=== PATIENT | female | born 1985 | race Caucasian/White ===

== ENCOUNTER 2023-08-01 07:25 | Outpatient (OUT) | payer BC, SELFPAY ==
--- NOTE | 2023-08-02 | PCN_ITS ---
CARDIAC STRESS TEST Requesting Physician:? Vijay Lopez NP Procedure Date:? 08/02/2023 PERFORMING PROVIDER:? Ana Luisa Dia M.D. STRESS TEST TYPE:? Treadmill Resting EKG:? Abnormal.? Sinus rhythm with short GA, pre-excitation noted consistent with WPW. Protocol:? Ramo Resting heart rate:? 64 Peak heart rate:? 171 Peak maximal heart rate:? 92% Resting blood pressure:? 118/78 Peak blood pressure:? 158/86 Exercise time:? 12 minutes 0 seconds Stage reached: ?4 Max METS:? 13.4 Reason for termination:? Achieved target heart rate. Heart rate recovery:? Normal. Chronotropic response index:? Normal. Functional capacity:? Normal. Blood pressure response:? Normal. CONCLUSION: 1.? Patient has abnormal resting EKG.? Sinus rhythm with WPW is noted.? 2.? Stress test is non-diagnostic for ischemia; however, recommend additional testing if clinically indicated.? 3.? Clinical correlation recommended. MTDD
== END 2023-08-01 07:26 | disposition home or self-care (01) ==
LOC: CARD 07:28
PROVIDERS: PCP Family Medicine; Visit Provider Nurse Practitioner
DX: I45.6 Pre-excitation syndrome (principal); R07.9 Chest pain, unspecified
CPT/HCPCS: 93017

== ENCOUNTER 2024-12-06 19:52 | Outpatient (REF) | payer SELFPAY ==
[2024-12-12 09:09] LABS: Age Gdln ACOG Testing Note (.); HPV Aptima Negative (Negative); IGP, Aptima HPV, rfx 16/18,45 Note (.)
== END 2024-12-06 19:53 | disposition home or self-care (01) ==
LOC: LAB 19:52
PROVIDERS: PCP Family Medicine; Visit Provider Physician Assistant
DX: Z01.419 Encounter for gynecological examination (general) (routine) without abnormal findings (principal)
CPT/HCPCS: 87624; 88175

== ENCOUNTER 2025-04-03 10:24 | Outpatient (OUT) | payer BC, SELFPAY ==
--- OUTSIDE RECORDS SUMMARY | 2023-11-09 03:25 | XMS_ITS ---
Author Organization [facility] in [place] Address [address] [place] [address] Care Team Providers Care Continuous Loft Operator Name Role Phone Clair Adrian Primary Care Provider [phone] GRISELDA ANN Unavailable [phone] REASON FOR VISIT update Encounters Encounter Location Date Provider Diagnosis [facility] [address] [facility] [place] [address] 11/09/2023 GRISELDA ANN Plan Of Treatment No Information Progress Notes * Myrna TAVERAS LDOB: 7 (38 yo F)Acc No.[id number]:11/09/2023 Patient: Anthony Gastelumjoe Mares :1985 A ge:38 Y S ex:Female Address:[facility] [address] [place] [address] Subjective: * Chief Complaints: * U pdate * Medical History: * Surgical History: h eart ablasion- Dr Jones 09/2023 * Hospitalization/Major Diagno stic Procedure: * Medications: Objective: Assessment: Plan: * Treatment: * Procedure Codes: * true * Date: Generated for Luci ng/Fajosephg/eTransmitting on: 0 04/03/2025 10:29 AM EDT
--- OUTSIDE RECORDS SUMMARY | 2024-03-12 12:00 | XMS_ITS ---
Author Organization [facility] in [place] Address [address] [place] [address] Care Team Providers Care Hook And Eye Attacher Name Role Phone Adrian Self Primary Care Provider GRISELDA SELF Unavailable [phone] Allergies Allergen (clinical drug ingredient) Drug/Non Drug Allergy documented on EMR Reaction Allergy Type Onset Date Status Non-steroidal anti-inflammatory agent (FN) NSAIDs anaphylaxis Drug Allergy Active REASON FOR VISIT yearly wellness Medications Medication SIG (Take, Route, Fr equency, Duration) Notes Start Date End Date Status Dupixent 200 MG/1.14ML as directed Subcu taneous twice a month Active Dulera 200-5 MCG/ACT 2 puffs Inhalation Twice a day Active CeleXA 10 MG 1 tablet Orally Once a day for 30 days 03/12/2024 Active Social History Tobacco Use: Social History Observation Description Date Details (start date - stop date) Never Smoker NA - NA Tobacco Control (Standard) Question Answer Notes Tobacco use: Nonsmoker AUDIT-C (Standard) Question Answer Notes Did you have a drink contain ing alcohol in the past year? Yes How often did you have six o r more drinks on one occasion in the past year? Never (0 point) How many drinks did you have on a typical day when you were drinking in the past year? 1 or 2 drinks (0 point) How often did you have a dri nk containing alcohol in the past year? 2 to 3 times a week (3 points) Points 3 Interpretation Positive Problems Problem Type SNOMED Code ICD Code Onset Dates Problem Status W/U Status Risk Notes Problem Palpitations (73378774) Heart palpitations (R00.2) Active confirmed Problem Acute chest pain (347469743) Acute chest pain (R07.9) Active confirmed Problem Eczema (07406694) Eczema (L30.9) Active confirmed Problem Polyp, nasal, cavity (J33.0) Active confirmed Problem Asthma (605907211) Asthma (J45.909) Active confirmed Problem Vertigo (882201868) Vertigo (R42) Active confirmed Problem Fatigue (59742268) Fatigue (R53.83) Active confirmed Problem Well adult (060962339) Well adult (Z00.00) Active confirmed Vital Signs Weight 150 lbs 03/12/2024 Height 65 in 03/12/2024 Blood pressure systolic 118 mm Hg 03/12/20 24 Blood pressure diastolic 78 mm Hg 024 BMI 24.96 kg/m2 03/12/2024 Encounters Encounter Location Date Provider Diagnosis [facility] [address] [facility] [place] [address] 03/12/2024 GRISELDA SELF Well adult Z00.00 Assessments Encounter Date Diagnosis (ICD Code) Assessment Notes Treatment Notes Treatment Clinical Notes Section Notes 03/12/2024 Well adult (ICD-10 - Z00.00) Plan Of Treatment Medication Medication Name Sig Start Date Stop Date Notes CeleXA 10 MG 1 tablet Orally Once a day for 30 days 2023 Pending Test Test Name Order Date CMP (COMPLETE METABOLIC PANEL) 4 HEMOGLOBIN A1C (GLYCO) 03/12/2024 LIPID PANEL (CHOL/TRIG/HDL/LDL) 03/12/20 24 CBC WITH DIFF 03/12/2024 THYROID PANEL (T4/TSH/FREE T3) 4 Progress Notes * Myrna TAVERAS LDOB: 7 (38 yo F)Acc No.[id number]:03/12/2024 Progress Note Patient: Myrna HART Provider: Bisi Self M.D. :1985 A ge:38 Y S ex:Female Date:03/12/2024 Address:[address] [place] [address] [address], [address], [id number] Check In:03:52 PM ESTCheck O ut:04:14 PM EST Subjective: * Chief Complaints: * Y early wellness * HPI: D epression Screening: PHQ-9 L ittle interest or pleasure in doing things?Several days F eeling down, depressed, or hopeless S everal days T rouble falling or staying asleep, or sleeping too much M ore than half the days F eeling tired or having little energy M ore than half the days P oor appetite or overeating M ore than half the days F eeling bad about yourself or that you are a failure, or have let yourself or your family down N ot at all T rouble concentrating on things, such as reading the newspaper or watching television N early every day M oving or speaking so slowly that other people could have noticed; or the opposite, being so fidgety or restless that you have been moving around a lot more than usual N ot at all T houghts that you would be better off or of hurting yourself in some way N ot at all T otal Score 1 1 I nterpretation M oderate Depression G eneral: WEll aduilt visit mom - therapist recoemmended taking somethign for axiety' needs yearly labs - extra emotional - wiling to try celexa. * ROS: E ENT: hearing changes d enies. v isual changes d enies.?non-healing mouth sores d enies. s wollen glands or neck lumps d enies. h oarseness d enies. s ore throat d enies. d ifficulty swallowing d enies. n ose bleeds d enies. n femi congestion d enies. e ar ache d enies. e ar discharge?denies. r inging in ears d enies. l ight sensitivity d enies. e ye pain d enies. b lurring d enies. e ye irritation d enies. d ouble vision d enies.?vision loss d enies. G eneral/Constitutional: Sweats: D enies. F atigue d enies. S leep problems d enies. A norexia d enies. M alaise d enies. W eight loss d enies.?Fatigue or Weakness d enies. F ever or Chills d enies. C ardiovascular: Shortness of Breath w/lying flat d enies. L ightheadedness/dizziness d enies. C hest tightness/ heavy pressure d enies. S welling of legs, ankles, or feet d enies. W aking up with shortness of breath d enies. C hest pain denies. P alpitations d enies. W eight gain d enies. R espiratory: Chronic or frequent cough d enies. C oughing up blood?denies. D ifficulty breathing d enies. P roductive cough d enies. S noring?denies. S hortness of breath that awakens from sleep (PND) d enies. C hest pain d enies. S putum production d enies. W heezing d enies. M usculoskeletal: Joint pain d enies. J oint Fluid d enies. B ack pain d enies. K nee pain d enies. N dm pain d enies. J oint Stiffness d enies. M uscle cramps d enies. W eakness of muscles d enies. A rthritis d enies. M uscle aches d enies. P ain in shoulder(s) d enies. S wollen joints d enies. * Active Problem List R00.2 Heart palpitations Modified On:03/12/2024 Status:confirmed R07.9 Acute chest pain Modified On:03/12/2024U Status:confirmed L30.9 Eczema Modified On:03/12/2024U Status:confirmed J33.0 Polyp, nasal, cavity Modified On:03/12/2024U Status:confirmed J45.909 Asthma Modified On:03/12/2024 Status:confirmed R42 Vertigo Modified On:03/12/2024 Status:confirmed R53.83 Fatigue Modified On:03/12/2024 Status:confirmed Z00.00 Well adult Modified On:03/12/2024 Status:confirmed * Medical History: * Surgical History: h eart ablasion- Dr Jones sections x2 * Hospitalization/Major Diagno stic Procedure: N o Hospitalization History. * Family History: F ather: alive, diagnosed with Diabetes, Cancer. M other: , mental health disorders, diagnosed with Cancer. 2 brother(s) - healthy. 1 son(s) , 1 daughter(s) - healthy. . * Social History: T obacco Use: T obacco Control (Standard) T obacco use: N onsmoker D rug/Alcohol: A AMY-C (Standard) D id you have a drink containing alcohol in the past year? Y es H ow often did you have six or more drinks on one occasion in the past year? N ever (0 point) H ow many drinks did you have on a typical day when you were drinking in the past year? 1 or 2 drinks (0 point) H ow often did you have a drink containing alcohol in the past year? 2 to 3 times a week (3 points) P oints 3 I nterpretation P ositive * Medications: T akingDulera(Mometasone Furo-Formoterol Fum) 200-5 MCG/ACT Aerosol 2 puffs Inhalation Twice a day Dupixent(Dupilumab) 200 MG/1.14ML Solution Pen-injector as directed Subcutaneous twice a month Medication List reviewed and reconciled with the patientTaking Dulera(Mometasone Furo-Formoterol Fum) 200-5 MCG/ACT Aerosol 2 puffs Inhalation Twice a day Taking Dupixent(Dupilumab) 200 MG/1.14ML Solution Pen- injector as directed Subcutaneous twice a month Medication List reviewed and reconciled with the patient * Allergies: N SAIDs: anaphylaxisno[Allergies Verified] Objective: * Vitals: W t:150lbs, Ht: 65 in, BP:118/78mm Hg, BMI:24.96Index, Ht-cm: 165.1 cm, Wt-k.04 kg. * Examination: P hysical Exam: GENERAL: w ell developed, well nourished, in no acute distress. HEAD: n ormocephalic/atraumatic. EYES: p upils equal, round and reactive to light, conjunctivae and sclerae normal. EARS: n o deformity or lesion of external ear, canals and TM appear normal bilaterally, TM's intact, not inflamed with normal light reflex, hearing grossly normal to conversational speech. NOSE: n o deformity, discharge, inflammation, or lesions.? MOUTH: m ucous membranes moist, normal oropharynx and posterior pharynx without lesions or exudates, tongue normal, dentition normal. NECK: n dm supple, no masses or palpable cervical nodes, trachea midline, thyroid without nodules, masses, tenderness, or enlargement. CHEST: n o chest wall deformity, no chest wall tenderness.? LUNGS: n ormal respiratory effort and clear to auscultation, no wheezes, rales, or rhonchi, good air exchange. CARDIO: r egular rate and rhythm, normal S1 and S2, nor murmur, rub, or gallop. PULSES: n ormal capillary refill. ABDOMEN: s oft, non-distended, non-tender, no masses. ? Assessment: * Assessment: [facility]. [facility] - Z[facility].00 (Primary) Plan: * Treatment: * Procedure Codes: * * Sign off status: Completed Visit Status: C HK (Check Out) true * Provider: Bisi Self M.D. Date: 0 03/12/2024 Generated for Hanane norman/Rony/Lusmitting on: 0 04/03/2025 10:29 AM EDT History and Physical Notes * HPI (History of Present Illness) Category Sub-Category Detail Notes Category Not es Depression Screening PHQ-9 Little inte rest or pleasure in doing things: Several days Feeling down, depressed, or hopeless: Se veral days Trouble falling or staying a sleep, or sleeping too much: More than half the days Feeling tired or having little energy: M ore than half the days Poor appetite or overeating: More than h fdc the days Feeling bad about yourself o r that you are a failure, or have let yourself or your family down: Not at all Trouble concentrating on thi ngs, such as reading the newspaper or watching television: Nearly every day Moving or speaking so slowly that other people could have noticed; or the opposite, being so fidgety or restless that you have been moving around a lot more than usual: Not at all Thoughts that you would be b jaleel off or of hurting yourself in some way: Not at all Total Score: 11 Interpretation: Moderate Depression Examination Category Sub-Category Detail Notes Category Not es Physical Exam GENERAL: well developed, well nourished, in no acute distress HEAD: normocephalic/atraum atic EYES: pupils equal, round and reactive to light, conjunctivae and sclerae normal EARS: no deformity or lesi on of external ear, canals and TM appear normal bilaterally, TM's intact, not inflamed with normal light reflex, hearing grossly normal to conversational speech NOSE: no deformity, discha rge, inflammation, or lesions MOUTH: mucous membranes arsalan st, normal oropharynx and posterior pharynx without lesions or exudates, tongue normal, dentition normal NECK: neck supple, no mass es or palpable cervical nodes, trachea midline, thyroid without nodules, masses, tenderness, or enlargement CHEST: no chest wall deform ity, no chest wall tenderness LUNGS: normal respiratory e ffort and clear to auscultation, no wheezes, rales, or rhonchi, good air exchange CARDIO: regular rate and rhy thm, normal S1 and S2, nor murmur, rub, or gallop PULSES: normal capillary ref ill ABDOMEN: soft, non-distended, non-tender, no masses
--- OUTSIDE RECORDS SUMMARY | 2025-04-03 10:30 | XMS_ITS | Encounter Summary ---
Author Organization [facility] Address [address] [place] [address] Care Team Providers Care Home Attendant Name Role Phone Chino Self MD Primary Care Provider [phone] Encounter Details Date Type Department Care Team (Late st Contact Info) Description 12/18/2024 Orders Only [facility] [address] [place] [address] Antonette Rodriguez LPN [address] [employer] [place] [id number] Social History Tobacco Use Types Packs/Day Years Used Date Smoking Tobacco: Never Smokeless Tobacco: Never Alcohol Use Standard Drinks/Week Comments Yes 1 (1 standard drink = 0.6 oz pure alcohol) caffeine intake: none. occasional alcohol use. Comments Unknown Sex and Gender Information Value Date Recorded Sex Assigned at Not on file Legal Sex Female 7:10 PM EDT Gender Identity Not on file Sexual Orientation Not on file documented as of this encounter Plan of Treatment Upcoming Encounters Date Type Department Care Team (Late st Contact Info) Description 06/05/2025 10:20 AM EDT Office Visit [facility] [address] [facility] [address] [place] [phone] Jason Perla MD [address] [place] [address] 12/10/2025 1:00 PM EST Office Visit [facility] [address] [place] [address] Kavitha Ramos PA [address] [facility] [place] [address] documented as of this encounter Procedures Procedure Name Priority Date/Time Associated Diagnosis Comments PAP SMEAR Routine 12/06/2024 12:00 AM EST documented in this encounter Results * Pap Smear (12/06/2024 12:00 AM EST) Swab Cervical swab / Unknown [facility] ORDERABLES Final Re sult EXTERNAL LAB documented in this encounter Visit Diagnoses Not on filedocumented in this encounter Care Teams Home Attendant Relationship Specialty Start Date End Date Chino Self MD PCP - General Family Medicine 09/21/23 documented as of this encounter
--- OUTSIDE RECORDS SUMMARY | 2025-04-03 10:30 | XMS_ITS | Encounter Summary ---
Author Organization [facility] Address [address] [place] [address] Care Team Providers Care Shirrer Name Role Phone Chino Self MD Primary Care Provider [phone] Encounter Details Date Type Department Care Team (Late st Contact Info) Description 04/04/2023 Abstract [facility] [address] [facility] [place] [phone] Rasheed Russo, [address] [place] [address] Social History Tobacco Use Types Packs/Day Years [...] Office Visit [facility] [address] [place] [phone] Jason Perla MD [address] [place] [address] 12/10/2025 1:00 PM EST Office Visit [facility] [address] [facility] [place] [phone] Kavitha Ramos PA [address] [facility] [place] [address] documented as of this encounter Visit Diagnoses Not on filedocumented in this encounter Care Teams Shirrer Relationship Specialty Start Date End Date Chino Self MD PCP - General Family Medicine 09/21/23 documented as of this encounter
--- OUTSIDE RECORDS SUMMARY | 2025-04-03 10:30 | XMS_ITS | Clinical Summary ---
Author Organization [facility] Address [address] [place] [address] Care Team Providers Care Senior Center Director Name Role Phone Chino Self MD Primary Care Provider [phone] Allergies Active Allergy Reactions Criticality Noted Date Comments Amoxicillin-Pot Clavulanate 12/06/19 25 Other Reaction(s): Unknown Aspirin Anaphylaxis High 10/04/2018 Naproxen Anaphylaxis High 08/05/2022 Other Reaction(s): Nausea/Vomiting Nsaids Anaphylaxis High 10/04/2018 Other Reaction(s): Other: See Comments [employer] Other Reaction(s): Other (See Comments) Penicillins Rash Low 08/05/2022 Other Reaction(s): Unknown Medications CeleXA 10 MG tablet 1 (one) time each day at the same time. 4 Active mometasone-formot esvin (Dulera) 200-5 MCG/ACT inhalerIndication s:Asthma in adult, severe persistent, uncomplicated (CMS/HCC) Inhale 2 puffs every 4 (four) hours if needed (for cough wheeze or SOB) Rinse mouth with water after use to reduce aftertaste and incidence of candidiasis. Do not swallow. 13 g 11 5 12/12/19 26 Active dupilumab (Dupixent) 300 MG/2ML injectionIndicati ons:Atopic Dermatitis Inject 1 Syringe (300 mg) under the skin every 14 (fourteen) days 6 each 3 5 01/23/20 26 Active Active Problems No known active problems Encounters Date Type Department Care Team Description 01/22/2025 Telephone [facility] [address] [place] [address] Jason Perla MD from Last 3 Months Family History Medical History Relation Name Comments Cancer Father Hyperlipidemia Father Hypertension Father Hypertension Mother Mental illness Mother Cancer Other Cancer Paternal Grandfather Cancer Paternal Grandmother Relation Name Status Comments Daughter 1 daughter Father Mother Other siblings Paternal Grandfather Paternal Grandmother Son 1 son Social History Tobacco Use Types Packs/Day Years [...] on file Sexual Orientation Not on file Last Filed Vital Signs Vital Sign Reading Time Taken Comments Blood Pressure 116/70 12/06/2024 2:21 PM EST Pulse - - Temperature - - Respiratory Rate - - Oxygen Saturation - - Inhaled Oxygen Concentration - - Weight 69.9 kg (154 lb) 12/12/2024 3:19 PM EST Height 165.1 cm (5' 5 ) 09/21/2023 3:25 PM EST Body Mass Index 25.63 09/21/2023 3:25 PM EST Plan of Treatment Upcoming Encounters Date Type Department Care Team (Late st Contact Info) Description 06/05/2025 10:20 AM EDT Office Visit [facility] [address] [place] [address] Jason Perla MD [address] [place] [address] 12/10/2025 1:00 PM EST Office Visit [facility] [address] [facility] [phone] Kavitha Ramos PA [address] [facility] [place] [address] Health Maintenance Due Date Last Done Comments HPV/Cotest 2017 Influenza Vaccine (Season Ended) 2025 Cervical Cancer Screening 12/06/2027 Pap Smear 12/06/2027 12/06/2024 Procedures Procedure Name Priority Date/Time Associated Diagnosis Comments PAP SMEAR Routine 12/06/2024 12:00 AM EST from Last 3 Months or Most Recently Relevant to Health Maintenance Results * Pap Smear (12/06/2024 12:00 AM EST) Swab Cervical swab / Unknown [facility] CYT[facility] ORDERABLES Final Re sult EXTERNAL LAB from Last 3 Months or Most Recently Relevant to Health Maintenance Insurance [facility] Care Teams Senior Center Director Relationship Specialty Start Date End Date Chino Self MD PCP - General Family Medicine 09/21/23
--- OUTSIDE RECORDS SUMMARY | 2025-04-03 10:30 | XMS_ITS | Encounter Summary ---
Author Organization [facility] Address [address] [place] [address] Care Team Providers Care Nurses Educator Name Role Phone Chino Self MD Primary Care Provider [phone] Encounter Details Date Type Department Care Team (Late st Contact Info) Description 03/31/2023 Abstract [facility] [address] [facility] [place] [phone] Rasheed Russo, [address] [place] [address] Social History Tobacco Use Types Packs/Day Years Used Date Smoking Tobacco: Never Smokeless Tobacco: Never Alcohol Use Standard Drinks/Week Comments Yes 1 (1 standard drink = 0.6 oz pur e alcohol) caffeine intake: none Comments Unknown Sex and Gender Information Value [...] [facility] [address] [place] [phone] Jason Perla MD [address] [place] [address] 12/10/2025 1:00 PM EST Office Visit [facility] [address] [place] [address] Kavitha Ramos PA [address] [facility] [place] [address] documented as of this encounter Visit Diagnoses Not on filedocumented in this encounter Care Teams Nurses Educator Relationship Specialty Start Date End Date Chino Self MD PCP - General Family Medicine 09/21/23 documented as of this encounter
--- OUTSIDE RECORDS SUMMARY | 2025-04-03 10:30 | XMS_ITS | Clinical Summary ---
Author Organization [facility] Address [id number] [address] [place] [address] Care Team Providers Care Front Services Agent Name Role Phone Unavailable Primary Care Provider Unavailabl e Social History Tobacco Use Types Packs/Day Years Used Date Smoking Tobacco: Never Assessed Childcare Answer Date Recorded Childcare Unknown 04/09/2019 Employment Answer Date Recorded Employment Unknown 04/09/2019 Comments Unknown Sex and Gender Information Value Date Recorded Sex Assigned at Not on file Legal Sex Female 12:39 PM EDT Gender Identity Not on file Sexual Orientation Not on file Plan of Treatment Health Maintenance Due Date Last Done Comments Depression Screening 1999 Tobacco Screening 1999 Adult BMI Screening 2005 DTaP,Tdap and Td Vaccines (1 - Tdap) 2006 Pap Smear 2008 Influenza Vaccine 07/01/2025 Medical Devices Not on file
--- OUTSIDE RECORDS SUMMARY | 2025-04-03 10:30 | XMS_ITS | Clinical Summary ---
Author Organization [facility] Address [address] [place], [place] [id number] Care Team Providers Care Motorcycle Technician Name Role Phone Chino Self MD Primary Care Provider [phone] Allergies Active Allergy Reactions Criticality Noted Date Comments Aspirin Anaphylaxis High 10/04/2018 Naproxen Anaphylaxis High 08/05/2022 Nsaids (Non-Steroidal Anti-Inflammatory Drug) Anaphylaxis,Other: See Comments High 10/04/2018 [facility] Penicillins Rash Low 08/05/2022 Social History Tobacco Use Types Packs/Day Years Used Date Smoking Tobacco: Never Assessed Comments Unknown Sex and Gender Information Value Date Recorded Sex Assigned at Not on file Legal Sex Female 10:52 AM EDT Gender Identity Not on file Sexual Orientation Not on file Last Filed Vital Signs Vital Sign Reading Time Taken Comments Blood Pressure 114/80 03/15/2024 3:29 PM EDT Pulse 62 03/15/2024 3:29 PM EDT Temperature - - Respiratory Rate - - Oxygen Saturation - - Inhaled Oxygen Concentration - - Weight 67.1 kg (148 lb) 03/15/2024 2:16 PM EDT Height - - Body Mass Index - - Plan of Treatment Health Maintenance Due Date Last Done Comments DTaP,Tdap,Td Vaccine (6 - Tdap) 1998 06/24/1992, 04/28/1989, 04/28/1988, Additional history exists Anxiety Screening 2005 Depression Screening 2005 HIV Screening 2005 Hepatitis C Screening 2005 Hepatitis B Vaccine (1 of 3 - 19+ 3-dose series) 2006 Cervical Cancer Screening 2008 Covid-19 Vaccine (2023-2 5 season) 2024 01/02/2021, 12/12/2020, 09/25/2020 Influenza Vaccine (Season Ended) 2025 Insurance BLUE CARD PPO OOS Care Teams Motorcycle Technician Relationship Specialty Start Date End Date Chino Self MD PCP - General Family Medicine 01/10/13
--- OUTSIDE RECORDS SUMMARY | 2025-04-03 10:30 | XMS_ITS | Patient Health Record ---
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 TESTS RESULT FLAG UNITS REF RANGE LAB Clinician Provided Cytology Information Source.............Cervix;Endocer vix No. of containers..01 ThinPrep Vial Age Algo ACOG Lacie... 30-65 01 FLAG LEGEND: L-Low Normal,H-High Normal,LL-Alert Low,HH-Alert High <-Panic Low,>-Panic High,A-Abnormal,AA-Critical Abnormal Performed at: 01 [facility] [address] [place] [address] Eleanor Rodriguez MD, IGP, Aptima HPV, rfx [birth year]18[birth year] Note . TESTS RESULT FLAG UNITS REF RANGE LAB DIAGNOSIS: 02 NEGATIVE FOR INTRAEPITHELIAL LESION OR MALIGNANCY. Specimen adequacy: 02 Satisfactory for evaluation. No endocervical component is identified. Areas of partially obscuring blood are present. Performed by: Nancy Kirby, Surgery Assistant (ASCP) . 02 Note: Note 02 The Pap smear is a screening test designed to aid in the detection of premalignant and malignant conditions of the uterine cervix. It is not a diagnostic procedure and should not be used as the sole means of detecting cervical cancer. Both false-positive and false-negative reports do occur. Test Methodology: Note 02 This liquid based ThinPrep(R) pap test was screened with the use of an image guided system. HPV Genotype Reflex Note 02 Criteria not met, HPV Genotype not performed. FLAG LEGEND: L-Low Normal,H-High Normal,LL-Alert Low,HH-Alert High <-Panic Low,>-Panic High,A-Abnormal,AA-Critical Abnormal Performed at: [address] [address] Eleanor Rodriguez MD, HPV Aptima Negative Negative This nucleic acid amplification test detects fourteen high- risk HPV types (16,18,31,33,35,39,45,51,52,56,58 ,59,66,68) without differentiation. Performed at: =[facility] [id number] [employer] Manager: Eleanor Rodriguez MD, Phone: [phone] Performed at: [address] [id number] [employer] Manager: Eleanor Rodriguez MD, Phone: [phone] Performing Lab: see note - [facility] Reason For Referral No Information Medications Medication SIG (Take, Route, Fr equency, Duration) Notes Start Date End Date Status CeleXA 20 MG 1 tablet Orally Once a day for 30 days 03/12/2024 Active Dulera 200-5 MCG/ACT 2 puffs Inhalation Twice a day Active Dupixent 200 MG/1.14ML as directed Subcu taneous twice a month Active Social History Tobacco Use: Social History Observation Description Date Details (start date - stop date) Never Smoker NA - NA Tobacco Control (Standard) Question Answer Notes Tobacco use: Nonsmoker Problems Problem Type SNOMED Code ICD Code Onset Dates Problem Status W/U Status Risk Notes Problem Fatigue (91124345) Fatigue (R53.83) Active confirmed Problem Asthma (567717967) Asthma (J45.909) Active confirmed Problem Vertigo (939651439) Vertigo (R42) Active confirmed Problem Eczema (19232202) Eczema (L30.9) Active confirmed Problem Palpitations (30978408) Heart palpitations (R00.2) Active confirmed Problem Well adult (266126401) Well adult (Z00.00) Active confirmed Problem Acute chest pain (356800303) Acute chest pain (R07.9) Active confirmed Problem Polyp, nasal, cavity (J33.0) Active confirmed Vital Signs Blood pressure diastolic 72 mm Hg 03/14/2025 Height 65 in 03/14/2025 Blood pressure systolic 106 mm Hg 03/14/2025 Weight 159.6 lbs 03/14/2025 BMI 26.56 kg/m2 03/14/2025 Encounters Encounter Location Date Provider Diagnosis [facility] [address] [place] [address] 03/14/2025 Adrian Self Well adult Z00.0 0 Assessments Encounter Date Diagnosis (ICD Code) Assessment Notes Treatment Notes Treatment Clinical Notes Section Notes 03/14/2025 Well adult (ICD-10 - Z00.00) Plan Of Treatment Pending Test Test Name Order Date CMP (COMPLETE METABOLIC PANEL) 4 HEMOGLOBIN A1C (GLYCO) 03/14/2025 HEMOGLOBIN A1C (GLYCO) 03/12/2024 LIPID PANEL (CHOL/TRIG/HDL/LDL) 03/14/20 25 LIPID PANEL (CHOL/TRIG/HDL/LDL) 03/12/20 24 CBC WITH DIFF 03/12/2024 Insulin Level 03/14/2025 THYROID PANEL (T4/TSH/FREE T3) 5 THYROID PANEL (T4/TSH/FREE T3) 4 MM screening mammo BI 03/14/2025 CMP (COMP MET DENT) w/eGFR CKD-EPI 2024 CBC WITH DIFF 03/14/2025 Insurance Providers Payer Name Payer Address Payer Phone Subscriber Number Group Number Insured Name Patient Relationship to Insured Coverage Start Date Coverage End Date [employer] [address] [place] [phone] [id number] Bandar Long Spouse - patient is the spouse of the insured Medical (General) History Medical History History ICD Code [facility] Surgical History Surgery Date(Month/Year) c sections x2 heart ablasion- Dr Jones 09/2023
[2025-04-03 10:47] LABS: Basophils Percent Auto 0.7 % (0.2-2.0); Eosinophils Absolute Auto 0.7 10^3/uL (0.0-0.7); Eosinophils Percent Auto 13.2 % (0.9-7.0); Hematocrit 39.1 % (36.0-48.0); Immature Granulocytes Abs Auto 0.01 10^3/uL (0.00-0.03); Immature Granulocytes Pct Auto 0.2 % (0.0-0.5); Lymphocytes Absolute Auto 1.7 10^3/uL (1.2-3.8); Lymphocytes Percent Auto 30.6 % (20.5-60.0); Mean Corpuscular HGB Conc 33.2 g/dL (29.9-35.2); Mean Corpuscular Volume 90.3 fL (81.0-99.0); Mean Platelet Volume 11.1 fL (9.5-13.5); Monocytes Absolute Auto 0.3 10^3/uL (0.3-0.8); Monocytes Percent Auto 4.8 % (1.7-12.0); Neutrophils Absolute Auto 2.8 10^3/uL (1.4-6.5); Neutrophils Percent Auto 50.5 % (43.0-75.0); Platelet Count 170 10^3/uL (150-450); Red Blood Count 4.33 10^6/uL (4.20-5.40); Red Cell Distribution Width 11.9 % (11.0-15.0); White Blood Count 5.5 10^3/uL (4.0-11.0)
[2025-04-03 11:06] LABS: Estimated Average Glucose 97 mg/dL
[2025-04-03 11:53] LABS: Alanine Aminotransferase 18 U/L (14-59); Albumin Globulin Ratio 1.1; Albumin Level 3.7 g/dL (3.4-5.0); Alkaline Phosphatase 48 U/L (46-116); Anion Gap 10.3; Aspartate Amino Transferase 13 U/L (15-37); BUN Creatinine Ratio 23.4; Bilirubin Total 0.7 mg/dL (0.2-1.0); Calcium 8.7 mg/dL (8.5-10.1); Carbon Dioxide 29.1 mmol/L (21.0-32.0); Chloride 105 mmol/L (98-107); Chol HDL Ratio 2.2; Cholesterol 177 mg/dL (<=200); Estimated GFR (African America >60 (>=60 mL/min/1.73m^2); Estimated GFR (Non-African Ame >60 (>=60 mL/min/1.73m^2); Free T3 2.15 pg/mL (2.18-3.98); Globulin 3.3 g/dL; Glucose 93 mg/dL (74-106); HDL Cholesterol 80 mg/dL (40-60); Potassium 4.4 mmol/L (3.5-5.1); Sodium 140 mmol/L (136-145); Thyroid Stimulating Hormone 1.697 uIU/mL (0.358-3.740); Triglycerides 44 mg/dL (<=150); VLDL CHOLESTEROL 8.8 mg/dL
[2025-04-04 08:09] LABS: Insulin 4.2 uIU/mL (2.6-24.9)
== END 2025-04-03 10:25 | disposition home or self-care (01) ==
LOC: LAB 10:28
PROVIDERS: PCP Family Medicine; Visit Provider Family Medicine
DX: Z00.00 Encounter for general adult medical examination without abnormal findings (principal)
CPT/HCPCS: 36415; 80053; 80061; 83036; 83525; 84436; 84443; 84481; 85025